=== PATIENT | female | born 2000 ===

== ENCOUNTER 2023-11-06 07:23 | Outpatient (CLI) | payer MEDICAID ==
[~2023-11-06] VITALS: Ht 170.2 cm; Wt 86.6 kg
[2023-11-06 07:50] VITALS: PULSE 83; RESP 16; O2SAT 98
[2023-11-06] MEDS: albuterol 2.5 MG/3 ML nebule NEB ONE (08:03)
== END 2023-11-06 23:59 | disposition home or self-care (01) ==
LOC: RT 07:23
PROVIDERS: ATTEND Physician Assistant Medical
DX: R06.02 Shortness of breath (principal); K58.0 Irritable bowel syndrome with diarrhea; J45.909 Unspecified asthma, uncomplicated; G93.5 Compression of brain; G43.909 Migraine, unspecified, not intractable, without status migrainosus; G47.33 Obstructive sleep apnea (adult) (pediatric)
CPT/HCPCS: 94060; 94760